=== PATIENT | female | born 1960 | race Caucasian/White ===

== ENCOUNTER 2020-07-23 18:01 | Emergency (ER) | payer OTHER ==
[~2020-07-23] VITALS: Ht 157.5 cm; Wt 150.0 kg
[2020-07-23 18:12] VITALS: BP 126/60
[2020-07-23] MEDS ORDERED: CEPH250T PO (19:22)
[2020-07-23] MEDS ORDERED: BACDS PO (19:22)
[2020-07-23] MEDS ORDERED: TETanus/Pertussis (Acell)/Diphther VAC/PF (Tdap-Adult) 0.5ml syringe IMVAC ONE (19:25)
[2020-07-23] MEDS ORDERED: ondansetron 4mg rapidly disintigrating tab PO ONE (19:45)
[2020-07-23] MEDS ORDERED: HYDROcodone/acetaminophen 5mg/325mg tablet PO ONE (19:45)
== END 2020-07-23 20:23 | disposition home or self-care (01) ==
LOC: ER 18:02
DX: L08.9 Local infection of the skin and subcutaneous tissue, unspecified (principal); Z79.899 Other long term (current) drug therapy
CPT/HCPCS: 90471; 90715; 99283